=== PATIENT | female | born 1955 | race Caucasian/White ===

== ENCOUNTER 2017-04-30 15:56 | Emergency (ER) | payer OTHER ==
[~2017-04-30 15:56] MED LIST: ALPRAZOLAM0.5 MG PO; ASPIR 8181 MG PO; CYCLOBENZAPRINE5 MG PO; ESG PO; LOSARTAN POTAS100 M1 PO; MAC100 PO; METOPROLOL TART25 M1 PO; PANTOPRAZOLE SO40 M1 PO; TRAMADOL HCL50 MG PO; TYLENOL WITH CO1 TA3 PO; ZYRTEC10 MG PO
[2017-04-30 18:36] VITALS: BP 105/60
[2017-05-01] MEDS ORDERED: METOPROLOL SUCC25 M2 (19:37)
[2017-05-01] MEDS ORDERED: CYCLOBENZAPRINE5 MG (19:38)
[2017-05-01] MEDS ORDERED: GOOD SENSE ASPI81 M3 (19:38)
[2017-05-01] MEDS ORDERED: TYLENOL WITH CO1 TA3 (19:38)
== END 2017-04-30 18:36 | disposition home or self-care (01) ==
LOC: ED 15:56
DX: R50.9 Fever, unspecified (principal); R11.10 Vomiting, unspecified; R19.7 Diarrhea, unspecified; M19.90 Unspecified osteoarthritis, unspecified site; I10 Essential (primary) hypertension; F41.9 Anxiety disorder, unspecified
CPT/HCPCS: J1170; J1885; J7512; Q0162

== ENCOUNTER 2017-05-01 15:52 | Inpatient (IN) | payer OTHER ==
[~2017-05-01] VITALS: Ht 157.5 cm; Wt 76.7 kg
[2017-05-01 17:31] LABS: CALCIUM 8.4 mg/dL (8.5-10.1); CARBON DIOXIDE 24.7 mmol/L (21-32); CHLORIDE SERUM 90 mmol/L (98-107); CREATININE SERUM 0.9 mg/dL (0.6-1.0); GFR1 > 60 mL/min; GLUCOSE SERUM 130 mg/dL (74-106); POTASSIUM SERUM 3.2 mmol/L (3.5-5.1); SODIUM SERUM 127 mmol/L (136-145)
[2017-05-01 17:32] LABS: PLATELET COUNT 187 x10^3mcL (130-400); RED CELL DISTRIBUTION WIDTH 11.6 % (11.5-14.5)
[2017-05-01 17:35] LABS: ALBUMIN 3.7 g/dL (3.4-5.0); ALKALINE PHOSPHATASE 66 U/L (46-116); ALT/SGPT 47 U/L (14-59); AST/SGOT 32 U/L (15-37); BILIRUBIN TOTAL 0.69 mg/dL (0.20-1.00); TOTAL PROTEIN, SERUM 7.3 g/dL (6.4-8.2)
[2017-05-01 17:40] LABS: BASOPHIL % 2.9 % (0-2)
[2017-05-01] MEDS ORDERED: METOPROLOL SUCC25 M2 (19:37)
[2017-05-01] MEDS ORDERED: GOOD SENSE ASPI81 M3 (19:38)
[2017-05-01] MEDS ORDERED: CYCLOBENZAPRINE5 MG (19:38)
[2017-05-01] MEDS ORDERED: TYLENOL WITH CO1 TA3 (19:38)
[2017-05-01 20:18] LABS: microscopic required? YES; urine erythrocyte TRACE (NEGATIVE)
[2017-05-01 20:31] LABS: CHOLESTEROL/HDL RATIO 3.7; MAGNESIUM 1.6 mg/dL (1.8-2.4); PHOSPHOROUS 1.7 mg/dL (2.5-4.9)
[2017-05-01 20:31] LABS: AMPHETAMINE QUAL UR NONE DETECTED (NEG <=1000)
[2017-05-01 20:40] VITALS: BP 104/50
[2017-05-01 20:40] LABS: FREE T4 4.18 ng/dL (0.76-1.46); T4(THYROXINE) 8.7 ug/dL (4.7-13.3)
[2017-05-01 20:43] VITALS: Ht 157.5 cm; Wt 76.7 kg
[2017-05-01 20:43] LABS: T3 TOTAL 0.8 ng/mL
[2017-05-01 22:25] VITALS: BP 96/52
[2017-05-02 06:09] VITALS: BP 110/52
[2017-05-02 06:37] LABS: CALCIUM 7.7 mg/dL (8.5-10.1); MAGNESIUM 1.6 mg/dL (1.8-2.4); POTASSIUM SERUM 3.9 mmol/L (3.5-5.1)
[2017-05-02 06:39] LABS: PLATELET COUNT 186 x10^3mcL (130-400); RED CELL DISTRIBUTION WIDTH 11.6 % (11.5-14.5)
[2017-05-02 09:55] VITALS: BP 100/51
[2017-05-02 11:33] LABS: BAND NEUTROPHIL 43 % (0-10); BASOPHIL 0 % (0-2); METAMYELOCTE 3 % (0-2); MONOCYTE 6 % (0-7); MYELOCYTE 1 % (0-2); SEGMENTED NEUTROPHILS 42 % (37-75)
[2017-05-02 11:34] LABS: PLATELET MORPHOLOGY PLATELETS NORMAL; burr cell (echinocyte) 1+; rbc morphology (normal/abnorm) ABNORMAL (NORMAL)
[2017-05-02 16:01] VITALS: BP 133/58
[2017-05-02 16:34] VITALS: BP 119/57
[2017-05-02 19:20] VITALS: BP 122/61
[2017-05-03 06:20] VITALS: BP 136/70
[2017-05-03 07:05] LABS: BASOPHIL % 0.6 % (0-2); PLATELET COUNT 165 x10^3mcL (130-400); RED CELL DISTRIBUTION WIDTH 11.7 % (11.5-14.5)
[2017-05-03 07:11] LABS: CALCIUM 7.8 mg/dL (8.5-10.1); CARBON DIOXIDE 25.9 mmol/L (21-32); CHLORIDE SERUM 103 mmol/L (98-107); CREATININE SERUM 0.6 mg/dL (0.6-1.0); GFR1 > 60 mL/min; GLUCOSE SERUM 95 mg/dL (74-106); MAGNESIUM 2.1 mg/dL (1.8-2.4); PHOSPHOROUS 1.8 mg/dL (2.5-4.9); POTASSIUM SERUM 3.1 mmol/L (3.5-5.1); SODIUM SERUM 137 mmol/L (136-145)
[2017-05-03 09:50] VITALS: BP 123/64
[2017-05-03 14:20] VITALS: BP 117/70
[2017-05-03 17:31] VITALS: BP 139/64
[2017-05-03 20:01] VITALS: BP 121/60
[2017-05-03 20:51] VITALS: BP 132/60
[2017-05-04 05:16] VITALS: BP 141/65
[2017-05-04 06:50] LABS: BASOPHIL % 0.5 % (0-2); PLATELET COUNT 198 x10^3mcL (130-400); RED CELL DISTRIBUTION WIDTH 12.9 % (11.5-14.5)
[2017-05-04 07:18] LABS: CALCIUM 8.3 mg/dL (8.5-10.1); CARBON DIOXIDE 23.6 mmol/L (21-32); CHLORIDE SERUM 105 mmol/L (98-107); CREATININE SERUM 0.6 mg/dL (0.6-1.0); GFR1 > 60 mL/min; GLUCOSE SERUM 108 mg/dL (74-106); MAGNESIUM 1.9 mg/dL (1.8-2.4); PHOSPHOROUS 2.5 mg/dL (2.5-4.9); POTASSIUM SERUM 3.9 mmol/L (3.5-5.1); SODIUM SERUM 138 mmol/L (136-145)
[2017-05-04 09:45] VITALS: BP 143/76
[2017-05-04] MEDS ORDERED: LEVAQUIN750 MG PO (11:12)
[2017-05-04] MEDS ORDERED: CLEOCIN HCL300 MG PO (11:13)
[2017-05-04] MEDS ORDERED: LAC PO (11:13)
[2017-05-04] MEDS ORDERED: LOPERAMIDE HCL2 M1 PO (11:15)
[2017-05-04 12:50] VITALS: BP 143/76
== END 2017-05-04 14:53 | disposition home or self-care (01) | DRG 871 ==
LOC: ED 15:52 → DU 18:51 → MU 05-04 09:12
PROVIDERS: Emergency Medicine; Family Medicine
DX: A41.9 Sepsis, unspecified organism (principal); N17.0 Acute kidney failure with tubular necrosis; E87.1 Hypo-osmolality and hyponatremia; N39.0 Urinary tract infection, site not specified; R65.20 Severe sepsis without septic shock; K52.9 Noninfective gastroenteritis and colitis, unspecified; E86.0 Dehydration; R31.9 Hematuria, unspecified; E87.6 Hypokalemia; E83.42 Hypomagnesemia; E83.39 Other disorders of phosphorus metabolism; I10 Essential (primary) hypertension; M79.7 Fibromyalgia; M50.20 Other cervical disc displacement, unspecified cervical region; M51.26 Other intervertebral disc displacement, lumbar region; E66.9 Obesity, unspecified; Z68.31 Body mass index [BMI] 31.0-31.9, adult
CPT/HCPCS: 83880; 84439; 87046; 87046-59; J1885; J1956; J2405; J3010; J3475; J3480; J7030; Q0092; Q9967